=== PATIENT | female | born 1945 ===

== ENCOUNTER 2023-07-26 06:00 | Outpatient (RCR) | payer MEDICARE, SELFPAY | END 2023-08-15 23:59 | disposition home or self-care (01) | LOC: SPT 06:00 | PROVIDERS: Visit Provider Nurse Practitioner Family | DX: M25.551 Pain in right hip (principal); R26.9 Unspecified abnormalities of gait and mobility | CPT/HCPCS: 97116; 97140; 97161; 97530 ==

== ENCOUNTER 2023-09-14 06:00 | Outpatient (RCR) | payer MEDICARE, SELFPAY | END 2023-10-14 23:59 | disposition home or self-care (01) | LOC: SPT 06:00 | PROVIDERS: Visit Provider Nurse Practitioner Family | DX: M25.551 Pain in right hip (principal); R26.9 Unspecified abnormalities of gait and mobility | CPT/HCPCS: 97110; 97140; 97530 ==

== ENCOUNTER 2023-10-05 06:00 | Outpatient (RCR) | payer MEDICARE, SELFPAY | END 2023-10-14 23:59 | disposition home or self-care (01) | LOC: SPT 06:00 | PROVIDERS: Visit Provider Nurse Practitioner Family | DX: H81.4 Vertigo of central origin (principal) | CPT/HCPCS: 95992; 97161 ==

== ENCOUNTER 2023-10-15 06:00 | Outpatient (RCR) | payer MEDICARE, SELFPAY | END 2023-11-13 23:59 | disposition home or self-care (01) | LOC: SPT 06:00 | PROVIDERS: Visit Provider Nurse Practitioner Family | DX: M25.551 Pain in right hip (principal); R26.9 Unspecified abnormalities of gait and mobility | CPT/HCPCS: 97110; 97140; 97530 ==

== ENCOUNTER 2023-11-14 06:00 | Outpatient (RCR) | payer MEDICARE, SELFPAY | END 2023-11-14 23:59 | disposition home or self-care (01) | LOC: SPT 06:00 | PROVIDERS: Visit Provider Nurse Practitioner Family | DX: M25.551 Pain in right hip (principal); R26.9 Unspecified abnormalities of gait and mobility | CPT/HCPCS: 97110; 97116 ==